=== PATIENT | male | born 1950 | race Caucasian/White ===

== ENCOUNTER 2019-03-21 16:46 | Inpatient (IN) | payer BC, OTHER ==
[~2019-03-21] VITALS: Ht 182.9 cm; Wt 54.0 kg
[2019-03-21] VITALS (12 sets, daily range): BP systolic 96–133; BP diastolic 55–94
--- NOTE | ~2019-03-21 | H ---
[facility] [place] [address] HISTORY AND PHYSICAL Name: JAKI LEON Room #: 207-P ADM IN M.R.#: [id number] Admission: 03/21/19 ������������������ Attend Phys: Yves Chen MD, Discharge: ������������������ Date of : 46 Report #: [id number] THIS REPORT FOR: //name// CC: SOBEIDA physician/PCP Yves Chen DATE OF SERVICE: 03/21/2019 HISTORY OF PRESENT ILLNESS: The patient is a 68-year-old male, who had onset of chest pain, shortness of breath that occurred at home approximately 45 minutes before they summoned [facility], comes in with some ST elevation in inferior lateral leads, which has worsened since he has been here. He is having significant discomfort. He has received aspirin, heparin, and Lipitor. He has taken nitroglycerin x2 with some partial relief. His only medication is quinapril. He states he does not believe in Western medicine, but somebody fills his quinapril. He has a history of a stroke 10 years ago or so he states, hypertensive stroke possibly with no residual and really does not offer much other history. He denies any other surgeries, but he has become progressively short of breath and weak for the last 2-3 weeks or longer. He has a 30 pound weight loss a year and a year and a half ago. They think predominantly due to asthma and COPD. He states he smoked since he left the womb until 10 years ago. 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 MEDICATIONS: His medications are quinapril and some inhaler. PAST MEDICAL HISTORY: Positive for some COPD, tobacco abuse, alcohol abuse, none of which he currently partakes in, some questionable asthma, appears to have chronic kidney disease. SOCIAL HISTORY: He is retired. He has 1 child, 1 daughter, who is accompanying and . LABORATORY DATA: His creatinine is 2.5. Troponin is 0.1. H and H is 13 and 39. ALLERGIES: No known drug allergies. PHYSICAL EXAMINATION: VITAL SIGNS: Pulse is 80, blood pressure 110/70. HEENT: There looks to be corneal arcus. Eyes reveal xanthelasmas. Pharynx is clear, slightly dry mucous membranes. NECK: Shows preserved upstrokes. LUNGS: Prolonged expiratory phase. CARDIOVASCULAR: S1, S2 distant. ABDOMEN: Slender, nontender. EXTREMITIES: Reveal no edema. Distal pulses diminished. [facility] [address] [place] [address] HISTORY AND PHYSICAL Name: JAKI LEON Room #: 207-P [facility] IN ..#: [id number] Admission: 03/21/19 ������������������ Attend Phys: Yves Chen MD, Discharge: ������������������ Date of : 48 Report #: [id number] NEUROLOGIC: Nonfocal. SKIN: Warm and dry without xanthoma or ulcer. MUSCULOSKELETAL: Generalized arthritic changes. ASSESSMENT: 1. Acute inferolateral myocardial infarction, ST elevation. 2. Chronic obstructive pulmonary disease. 3. Hypertension. 4. Apparent chronic kidney disease with creatinine currently 2.5. 5. History of possibly a stroke 10 years ago due to hypertension without current residual. RECOMMENDATIONS AND PLAN: We will proceed emergently to the catheterization lab. I discussed this with him, although he was concerned that he was not going to partake in Western medicine, he will agree to this procedure. Heparin, aspirin, nitro, and 80 of Lipitor has been given. We will initiate IV fluids here. Try to hydrate and limit our contrast as best we can, but in the throes of an inferolateral infarct, we will need to try to abort this. This has been discussed with the patient, his daughter, and . ��������������������������������������������� ���������������������������������������� By: ��������������������������������������������� 1737 52 Yves Chen MD, FACC /nt
--- NOTE | ~2019-03-21 | D ---
[facility] [place] [address] [place] [address] DISCHARGE SUMMARY Name: JAKI LEON Room #: 207-P DIS IN M.R.#: [id number] Admission: 03/21/19 ������������������ Attend Phys: Yves Chen MD, Discharge: 03/24/19 ������������������ Date of : 48 Report #: [id number] THIS REPORT FOR: //name// CC: SOBEIDA physician/PCP Yves Chen DATE OF SERVICE: 03/24/2019 HOSPITAL COURSE: A 68-year-old male who comes in with a stuttering anterior wall myocardial infarction. He does not see physicians. He does not really have primary care. He does get quinapril 5 mg from somebody when he was here. He had a ST-segment elevated NM with lateral leads, predominantly. To the labor employment associate emergently, 99% subtotal the LAD with some slow flow and a distal clot. The RCA has 70-75%, possibly for a later date. The circ was mildly diseased. This was a large wraparound LAD and the bifurcation after the apex was occluded along the inferior apical wall. This did open up partially. I was able to successfully dilate and stent the proximal segment with a 3.0 x 18 Resolute [place] stent, postdilated to 3.1 mm, HARRIET grade 3 flow. Then the entire flow was restored except for the very distal end of the inferior apical bifurcation of the distal LAD, which would be the inferior apical wall. There was an extensive anterior apical, inferior apical defect. EF 30-35% was consistent with what the echo findings were the following day. I suspect this may have been going on and off for a couple of weeks. I am hoping that we will recruit further myocardium. He will be discharged on dual antiplatelet therapy, aspirin and Plavix, quinapril 5, Toprol 25, atorvastatin 40. He has followup in 2 weeks in our office. I will see him in 3 months with an echo Doppler. Then, we will continue to watch carefully the RCA lesion which is in the 70% range. We will look first abnormal testing or symptoms. He has had no recurrent chest pain or pressure. He has been at times difficult post-procedure and stent. He does not believe in Western medicine, but will agree to do this. I explained that he did get a Western balloon and stent. I discussed with daughter and in detail. GI was evaluated and wanted to do a colonoscopy and EGD, but then he refused. May further evaluate this and GI was recommending the addition of Protonix 40 every day. No lifting for 48 hours. No lying in tub, Jacuzzi or pinto for a week. No MRI or dental work for 3 months. DISCHARGE DIAGNOSES: 1. Acute anterior lateral wall myocardial infarction. 2. Moderate ischemic cardiomyopathy. [address] [address] DISCHARGE SUMMARY Name: JAKI LEON Room #: 207-P DIS IN M.R.#: [id number] Admission: 03/21/19 ������������������ Attend Phys: Yves Chen MD, Discharge: 03/24/19 ������������������ Date of : 48 Report #: [id number] 3. Hypercholesterolemia. 4. Reflux. ��������������������������������������������� ���������������������������������������� By: ��������������������������������������������� 1317 1623 Yves Chen MD, FACC /nt
[2019-03-21 17:13] LABS: ABSOLUTE NEUTROPHILS 4.7 thou/uL (1.4-8.2); BASOPHILS 3.1 % (0.0-2.0); EOSINOPHILS 5.1 % (0.0-3.0); HEMATOCRIT 39.8 % (42.0-52.0); HEMOGLOBIN 13.1 gm/dL (14.0-18.0); LYMPHOCYTES 27.9 % (24.0-44.0); MCV 93.9 fL (80.0-100.0); MONOCYTES 7.3 % (1.0-8.0); PLATELET COUNT 229 thou/uL (150-400); POLYS 56.6 % (36.0-66.0); RBC 4.24 mil/uL (4.50-6.00); RDW 14.4 % (10.5-14.5); WBC 8.4 thou/uL (4.0-11.0)
[2019-03-21 17:20] LABS: CREATININE 2.5 mg/dL (0.7-1.3); POTASSIUM 4.2 mmol/L (3.5-5.1)
[2019-03-21 17:29] LABS: TROPONIN-I 0.1 ng/mL (<0.06)
[2019-03-22] VITALS: BP 165/67
[2019-03-22 04:00] VITALS: BP 110/69
[2019-03-22 04:13] LABS: CALCIUM 11.3 mg/dL (8.5-10.1); CREATININE 2.2 mg/dL (0.7-1.3); POTASSIUM 4.5 mmol/L (3.5-5.1)
[2019-03-22 04:19] LABS: HEMATOCRIT 35.9 % (42.0-52.0); MCH 31.1 pg (26.0-34.0); MCHC 33.6 g/dL (28.0-37.0); MCV 92.6 fL (80.0-100.0); RBC 3.87 mil/uL (4.50-6.00); RDW 14.3 % (10.5-14.5); WBC 7.8 thou/uL (4.0-11.0)
[2019-03-22 04:22] LABS: TROPONIN-I 40.56 ng/mL (<0.06)
--- NOTE | 2019-03-22 05:57 | NUR ---
ADMIT NOTE:RECEIVED REPORT FROM HARPER PERSON THE SAME TIME HE BROUGHT THE PATIENT TO THE UNIT.PT A/ O X 4.COMPLAIN OF HEADACHE,NECK PAIN AND BILATERAL SHOULDER PAIN WHICH IS CHRONIC AND REFUSED PAIN MEDICATION.PT IS IRRITABLE AND UNCOOPERATIVE INITIALLY.WANTS TO SIT UP AND TRIES TO BEND HIS RIGHT LEG.EXPLAINED TO HIM ABOUT THE RISK OF BLEEDING AND HE NEEDS TO BE BEDREST UNTIL 2200.PT UNDERSTOOD AND USES THE URINAL.VOIDED MORE THAN ADEQUATE AMOUNT.RIGHT GROIN SITE C/D/I.NO SIGNS OF BLEEDING OR HEMATOMA NOTED.ON INTEGRILLIN GTT AND DISCONTINUED AFTER [address] CANO.INTEGRILLIN WAS STARTED IN THE LAY OUT FORMER AND WAS ALREADY INFUSING WHEN PT REACH ROOM 207.PT IS ALSO ON NS AT 100 ML/HR AND DISCONTINUED AT 6 AM ORDERED.DENIES CHEST PAIN.COMPLAIN OF NAUSEA AFTER EATING AND DRINKING. FAMILY WAS HERE.WILL MONITOR AND CONTINUE POC. ORDERED.
[2019-03-22] MEDS ORDERED: ACCUPRIL5 MG PO (07:21)
[2019-03-22 08:10] VITALS: BP 110/69
--- NOTE | 2019-03-22 08:15 | EKG ---
[address] [place] [employer] [place] [address] ELECTROCARDIOGRAM REPORT Name: CAROLYNJAKIHUMBERTO FARFAN Room #: 207-P ADM IN M.R.#: [id number] ������������������ Admission: 03/21/19 ������������������ Attend Phys: Yves Chen MD, Discharge: ������������������ Date of : 46 Report #: [id number] ����������������������������������������������������������������� [id number] THIS REPORT FOR: //name// 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1950 Requested By: Jaxson Gerardo Order Number: [id number] MD: Alexander Ware Measurements Intervals [place] Rate: 87 P: 91 HI: 168 QRS: 72 QRSD: 106 T: 85 QT: 355 QTc: 427 Interpretive Statements Sinus rhythm Inferior infarct, acute (RCA) ST elevation, consider anterior injury No previous ECG available for comparison Electronically Signed On 03-22-2019 8:15:14 CDT by Alexander Ware [email or web address] ��������������������������������������������� <ELECTRONICALLY SIGNED> ���������������������������������������� By: Alexander Ware MD, [facility] ��������������������������������������������� 03/22/19 0815 1648 47 Alexander Ware MD, [facility] /EPI
--- NOTE | 2019-03-22 08:16 | EKG ---
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1950 Requested By: Jaxson Gerardo Order Number: [id number] MD: Alexander Ware Measurements Intervals [place] Rate: 79 P: -27 MI: 141 QRS: 51 QRSD: 103 T: 77 QT: 371 QTc: 426 Interpretive Statements Sinus rhythm Anterolateral infarct, acute (LAD) ST elevation, consider inferior injury No previous ECG available for comparison Electronically Signed On 03-22-2019 8:15:57 CDT by Alexander Ware [email or web address] ��������������������������������������������� <ELECTRONICALLY SIGNED> ���������������������������������������� By: Alexander Ware MD, [facility] ��������������������������������������������� 03/22/19 0815 172 20 Alexander Ware MD, [facility] /EPI
[2019-03-22 08:22] VITALS: BP 116/83
--- NOTE | 2019-03-22 08:24 | EKG ---
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1950 Requested By: Yves Chen Order Number: [id number] MD: Alexander Ware Measurements Intervals [place] Rate: 72 P: 82 CT: 163 QRS: -61 QRSD: 91 T: 81 QT: 372 QTc: 408 Interpretive Statements Sinus rhythm Left axis deviation RSR' in V1 or V2, probably normal variant No previous ECG available for comparison Electronically Signed On 03-22-2019 8:24:37 CDT by Alexander Ware [email or web address] ��������������������������������������������� <ELECTRONICALLY SIGNED> ���������������������������������������� By: Alexander Ware MD, [facility] ��������������������������������������������� 03/22/19823 3 3 Alexander Ware MD, [facility] /EPI
[2019-03-22 08:37] LABS: CHOLESTEROL 179 mg/dL (<200); HDL CHOLESTEROL 53 mg/dL (>40); LDL CHOLESTEROL 109 mg/dL (<100); TC:HDL 3.4 Ratio (Not establshd); TRIGLYCERIDE 88 mg/dL (<150); VLDL 18 mg/dL (<40)
--- NOTE | 2019-03-22 13:32 | 2DMMODE ---
[facility] [address] [place] [address] 2 D/M-MODE ECHOCARDIOGRAM Name: CAROLYNJAKI PRITCHETTN Room #: 207-P [facility] IN M.R.#: [id number] ������������� Admission: 03/21/19 ������������� Attend Phys: Yves Chen, Discharge: ��� ������������� ��� Date of : 46 Date of Service: 03/22/19 1332 �� Report #: [id number] �������� ��������������������������������������������[id number] THIS REPORT FOR: //name// APPROVED REPORT Study performed: 03/22/2019 11:22:58 EXAM: Comprehensive 2D, Doppler, and color-flow Echocardiogram Patient Location: Bedside Room #: [facility] Status: routine BSA: 1.71 HR: 68 bpm BP: 116/83 mmHg Rhythm: NSR Other Information Study Quality: Adequate Technically limited study due to lung disease, uncooperative patient. Indications COPD CAD Hypertension/HDD STEMI, post PCI Echo Enhancing Agent Indication: Endocardial border delineation Agent(s) / Amount(s) Used: Optison 3 cc 2D Dimensions RVDd: 29.86 mm IVSd: 7.85 (7-11mm) LVOT Diam: 22.62 (18-24mm) LVDd: 42.31 mm PWd: 9.27 (7-11mm) LVDs: 36.16 (25-40mm) Aortic Root: 30.97 mm IVC: 22.00 mm Volumes Left Atrial Volume (Systole) Single Plane 4CH: 42.02 mL Single Plane 2CH: 28.55 mL LA ESV Index: 23.00 mL/m2 Aortic Valve [facility] [address] [place] [address] 2 D/M-MODE ECHOCARDIOGRAM Name: JAKI LEON Room #: 207-P [facility] IN M.R.#: [id number] ������������� Admission: 03/21/19 ������������� Attend Phys: Yves Chen, Discharge: ��� ������������� ��� Date of : 46 Date of Service: 03/22/19 1332 �� Report #: [id number] �������� ��������������������������������������������[id number] AoV Peak Richard.: 0.90 m/s AO Peak Gr.: 3.25 mmHg LVOT Max P.28 mmHg LVOT Max V: 0.75 m/s GILBERT Vmax: 3.36 cm2 AI Vmax: 4.49 m/s AI [place]: 1.89 m/s2 AI PHT: 688.74 ms Mitral Valve E/A Ratio: 1.0 MV Decel. Time: 124.45 ms MV E Max Richard.: 0.48 m/s MV A Richard.: 0.50 m/s MV PHT: 36.09 ms IVRT: 138.41 ms Pulmonary Vein P Vein S: 0.32 m/s P Vein A: 0.22 m/s P Vein D: 0.39 m/s P Vein A Dur.: 138.4 msec P Vein S/D Ratio: 0.82 Tricuspid Valve TR Peak Richard.: 2.18 m/s RAP Estimate: 10.00 mmHg TR Peak Gr.: 19.03 mmHg PA Pressure: 29.00 mmHg Left Ventricle The left ventricle is normal size. Regional wall motion abnormalities are noted. There is normal left ventricular wall thickness. Left ventricular ejection fraction is moderate to severely decreased.severe ant apical distal septum hypo LVEF is 30 35% Right Ventricle The right ventricle is normal size. The right ventricular systolic function is normal. Atria The left atrium size is normal. The right atrium size is normal. Aortic Valve Mild aortic valve sclerosis. Mild aortic regurgitation. There is no aortic valvular stenosis. Mitral Valve The mitral valve is normal in structure. There [place] [address] 2 D/M-MODE ECHOCARDIOGRAM Name: JAKI LEON ADOLPH Room #: [facility] IN ..#: [id number] ������������� Admission: 03/21/19 ������������� Attend Phys: Yves Chen, Discharge: ��� ������������� ��� Date of : 46 Date of Service: 03/22/19 1332 �� Report #: [id number] �������� ��������������������������������������������[id number] regurgitation noted. No evidence of mitral valve stenosis. Tricuspid Valve The tricuspid valve is normal in structure. Trace tricuspid regurgitation. PAP is estimated at 29 mmHg. Pulmonic Valve Pulmonic valve is not well visualized. Great Vessels The aortic root is normal in size. Ascending aorta is not well visualized. IVC is mildly dilated and collapses >50% with inspiration. Pericardium Trace anterior pericardial effusion. <Conclusion> The left ventricle is normal size. Left ventricular ejection fraction is moderate to severely decreased.severe ant apical distal septum hypo LVEF is 30 35% The right ventricle is normal size. The left atrium size is normal. Mild aortic regurgitation. There is no mitral valve regurgitation noted. Trace tricuspid regurgitation. PAP is estimated at 29 mmHg. The aortic root is normal in size. Trace anterior pericardial effusion. ��������������������������������������������� <ELECTRONICALLY SIGNED> ���������������������������������������� By: Yves Chen MD, FACC ��������������������������������������������� 03/22/19 133 31 31 Yves Chen MD, FACC /INF
--- NOTE | 2019-03-22 16:08 | NUR ---
VSS REMAINS NSR. UP IN ROOM WITH NO C/O CHEST PAIN TODAY. R GROIN CATH SITE WITH SM BRUISING, NO HEMATOMA. PT C/O TODAY OF NAUSEA AND VOMITING AT TIMES OF UNDIGESTED FOOD, AWARE AND ZOFRAN ORDERED, WITH MODERATE RELIEF OF NAUSEA, APPETITE POOR. WILL CONTINUE TO MONITER AND CARE FOR PT PER PLAN OF CARE
--- NOTE | 2019-03-22 17:07 | CATHLAB ---
[facility] [address] [place] [address] INVASIVE PROCEDURE REPORT Name: JAKI LEON Room #: 207-P ADM IN M.R.#: [id number] ������������� Admission: 03/21/19 ������������� Attend Phys: Yves Chen, Discharge: ��� ������������� ��� Date of : 46 Date of Service: 03/22/19 1707 �� Report #: [id number] �������� ��������������������������������������������[id number] THIS REPORT FOR: //name// APPROVED REPORT Study performed: 03/21/2019 17:24:41 Patient Details Patient Status: In-Patient Room #: The patient is a 68 year-old male Event Personnel Yves Chen Patient Care Specialist, Kareem Tom RN RN, Monique Siddiqui Monitor, Carmella Barnett RTR, PROPELLANT ASSEMBLER Scrub Procedures Performed Art Access - R femoral artery* 16713 Initial Mod Sed Same Phys/QHP Gr5y 110175 89286 Mod Sed Same Phys/QHP Ea 813893 Left Heart Cath w/or w/o Coronaries 6229486 [facility] Aortogram Abdominal Peripheral Angio 227460 SHERIDAN Revasc AMI Total/Sub Single LAD C9606 AMIREVSING Hemostasis w/ Mynx Indication STEMI Procedure Narrative The patient was brought emergently to the Cardiac Catheterization Laboratory and was prepped and draped in a sterile manner. The was infiltrated with 1% Lidocaine subcutaneous anesthesia. A PINNACLE 6FR Sheath #[id number] sheath was inserted into the RFA^. Coronary angiography was performed using coronary diagnostic catheters. The right coronary system was accessed and visualized with a JR 4 catheter. The left coronary system was accessed and visualized with a JL 4 catheter. The left ventricle was accessed and visualized with a Pigtail catheter. Left ventriculogram was performed in SEGAL projection. An aortogram of the abdominal aorta was performed. Closure device was deployed with a 6 Fr Mynx. The patient tolerated the procedure well and there were no complications associated with the procedure. There was no hematoma. Intraoperative Conscious Sedation Sedation start time: 17:32 Case end Time: 18:19 Fentanyl 100 mcg Versed [address] [address] INVASIVE PROCEDURE REPORT Name: JAKI LEON Room #: 207-P [facility] IN ..#: [id number] ������������� Admission: 03/21/19 ������������� Attend Phys: Yves Chen, Discharge: ��� ������������� ��� Date of : 46 Date of Service: 03/22/19 1707 �� Report #: [id number] �������� ��������������������������������������������[id number] Fluoro Time: 4.47 minutes Dose: DAP 2581.00 cGycm2 327 mGy Contrast Type and Amount: Visipaque 125 ml Hemodynamics The aortic pressure is 102/69 mmHg with a mean of 83 mmHg. The left ventricular pressure is 111/17 mmHg with a mean of mmHg. The left ventricular end diastolic pressure is 41 mmHg. PCI Technique Lesion Percutaneous coronary intervention was performed on the proximal left anterior descending artery segment. A LAUNCHER 6FR EBU 3.5 #[id number] Guide Catheter was used to engage the ostium. BALLOON DILATION A Balloon catheter Sprinter OTW 2.5 x 15 #[id number] was inserted and inflated up to 12.00atm for 16seconds. STENT DEPLOYMENT A drug-eluting stent RESOLUTE LETICIA OTW 3.0 X 18 #[id number] was inserted and inflated up to 14.00atm for 28seconds. Conclusion #1 successful PTCA stent of the proximal small LAD high-grade subtotal lesion Clarisse with 30 by 18 [place] drug-eluting stent to 0% residual HARRIET grade 3 flow. Distal thrombus occludes the inferior apical segment of this LAD which extends to a small portion of inferior apical wall. 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 #4 dominant right with an eccentric 70-75% proximal mid vessel lesion filling a preserved NO and PDA which is a small system. This inferior apical branch off of the LAD predominantly was filling a portion of this inferior apex. #5 normal left jugular size with an extensive area of anterior apical inferior apical severe hypokinesis EF 30-35% range. #6 abdominal aortogram was performed due to significant tortuosity of the right iliac system. No occlusive disease no aneurysm. Flush injections reveal but may be a high-grade left renal artery stenosis. Impression: Successful emergent PTCA stent of the acute infarct vessel. The very small distal inferior apical segment of the LAD has clot formation. The remainder of the vessel is brisk flow restored. [facility] [address] [place] [address] INVASIVE PROCEDURE REPORT Name: JAKI LEON Room #: 207-P ADM IN M.R.#: [id number] ������������� Admission: 03/21/19 ������������� Attend Phys: Yves Chen, Discharge: ��� ������������� ��� Date of : 46 Date of Service: 03/22/191706 �� Report #: [id number] �������� ��������������������������������������������[id number] Transfer to [facility] in stable but guarded condition. Will closely follow RCA lesion and left renal artery stenosis. ��������������������������������������������� <ELECTRONICALLY SIGNED> ���������������������������������������� By: Yves Chen MD, FACC ��������������������������������������������� 03/22/191706 06 06 Yves Chen MD, FACC /INF
[2019-03-22 17:18] VITALS: BP 91/63
[2019-03-22 20:07] VITALS: BP 104/76
[2019-03-23 00:42] VITALS: BP 100/47
--- NOTE | 2019-03-23 02:36 | NUR ---
A/O X 4.DENIES PAIN AND SOB.COMPLAIN OF NAUSEA BUT REFUSES MEDICATION.INFORMED PATIENT AND FAMILY THAT ZOFRAN IS AVAILABLE IF NEEDED.RIGHT GROIN C/D/I;BRUISING NOTED BUT NO HEMATOMA.MONITOR SHOWS SINUS RHYTHM.NO RUNS OF VTACH NOTED.WILL MONITOR AND CONTINUE POC.
[2019-03-23] MEDS ORDERED: ADVAIR 250-501 EACH INH (03:27)
[2019-03-23 04:20] VITALS: BP 106/76
[2019-03-23 05:43] LABS: CALCIUM 11.6 mg/dL (8.5-10.1); CREATININE 2.2 mg/dL (0.7-1.3); POTASSIUM 4.7 mmol/L (3.5-5.1)
[2019-03-23 07:45] VITALS: BP 132/72
[2019-03-23] MEDS ORDERED: LIPITOR40 MG PO (08:37)
[2019-03-23] MEDS ORDERED: TOPROL XL25 MG PO (08:37)
[2019-03-23] MEDS ORDERED: ASPIRIN325 PO (08:37)
[2019-03-23] MEDS ORDERED: CLOPIDOGREL75 MG PO (08:37)
--- NOTE | 2019-03-23 09:49 | EKG ---
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1950 Requested By: Yves Chen Order Number: [id number] MD: Alexander Ware Measurements Intervals [place] Rate: 75 P: 33 AR: 148 QRS: -77 QRSD: 96 T: 89 QT: 368 QTc: 411 Interpretive Statements Sinus rhythm Left anterior fascicular block Low voltage, precordial leads Nonspecific T abnrm, anterolateral leads Compared to ECG 03/22/2019 07:14:43 Left anterior fascicular block now present Anterior T-wave abnormality is more pronounced Electronically Signed On 03-23-2019 9:49:08 CDT by Alexander Ware [email or web address] ��������������������������������������������� <ELECTRONICALLY SIGNED> ���������������������������������������� By: Alexander Ware MD, [facility] ��������������������������������������������� 03/23/19 0949 5 5 Alexander Ware MD, FAC /EPI
[2019-03-23 12:30] VITALS: BP 126/90
[2019-03-23 16:17] VITALS: BP 99/66
--- NOTE | 2019-03-23 18:22 | NUR ---
PT CARE ASSUMED APPROX 0700. PT ALERT AND ORIENTED X4. REPORTS CHRONIC PAIN IN BACK, NECK AND LEFT SHOULDER BUT REFUSES PAIN MEDS. REPORTS NAUSEA AND WAS MEDICATED ONCE FOR IT THIS AM. REFUSED MED AFTER. PT TOOK AM MEDS WITH DR CANO'S ENCOURAGEMENT. REFUSED NEW ORDER FOR LISINOPRIL D/T RELATIVE HOME MED. 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 LISINOPRIL STOPPED AND NEW HOME MED STARTERD ONCE PT BROUGHT IN. AFTER HOME MED ENTERED INTO Host Committee EMAR PT'S BP BELOW INDICATION TO GIVE BP MEDS. PT ASYMPTOMATIC. AGREEABLE TO HOLDING MED. VS OTHERWISE STABLE. EGD CONSENT OBTAINED AND SCHEDUELED FOR AM. PT AMBULATING IN HALLWAYS WITH FAMILY INTERMITTENTLY THIS SHIFT. STEADY GAIT. COMPLIANT WITH FLUID RESTRICTION AND DIET. NO DISTRESS NOTED.
[2019-03-23 20:24] VITALS: BP 125/96
--- NOTE | 2019-03-24 03:05 | NUR ---
ASSUMED PT'S CARE AT 1920; PT. ON BED; AOX4; DURING ASSESSMENT PT. ON BED; RELATIVE AT THE BED SIDE; NO HS MEDICATION; EDUCATED ABOUT THE REASON OF KEEPING OPEN DOORS; EDUCATED ABOUT ROUNDING THROUGH THE NIGHT; NOTIFIED LIGHTS WILL NO TURN ON WHEN ROUNDING; ST. HAVING PAIN WHEN ASKED IF HAS ANY PAIN; REFUSED PAIN MEDICATION; AROUND 2200 PT. REQUESTED PRN ANTI-NAUSEA MEDICATION; MEDICATION GIVEN; DURING RE-ASSESSMENT PT. RESTLESS; C/O NAUSEA; ST. MEDICATION HELPED JUST FOR SOME TIME; REFUSED MORE MEDICATION; REQUESTED BATHROOM LIGHT OFF; REMINDED OF NPO AFTER MIDNIGHT; ST. UNDERSTANDING; ABLE TO REST WITH EYES CLOSED AFTER MIDNIGHT; MONITORING; ASSESSMENT CHARGED; FOLLOWING POC; WILL PASS ON REPORT.
[2019-03-24 05:22] VITALS: BP 125/86
[2019-03-24 08:15] VITALS: BP 114/87
[2019-03-24 11:45] VITALS: BP 87/63
[2019-03-24 12:32] LABS: HEMATOCRIT 37.8 % (42.0-52.0)
[2019-03-24] MEDS ORDERED: PROTONIX40 M1 PO (13:18)
[2019-03-24 13:21] VITALS: BP 114/87
--- NOTE | 2019-03-24 13:38 | NUR ---
ASSUMED PATIENT CARE AT 0700. A/O X4. DENIES CHEST PAIN. 500ML NS GIVEN FOR LOW BP. PATIENT REFUSED EGD. DC TO HOME NOW.
== END 2019-03-24 14:45 | disposition home or self-care (01) | DRG 247 ==
LOC: ER 16:46 → EROBS 17:05 → 2N 17:05 → ENTRNSPT 03-24 14:31 → 2N 03-24 14:45
PROVIDERS: Emergency Medicine; Internal Medicine Gastroenterology; Nurse Practitioner Adult Health; ADMIT Internal Medicine Cardiovascular Disease
PROC: 4A023N7 Measurement of Cardiac Sampling and Pressure, Left Heart, Percutaneous Approach (ICD-10-PCS; principal; 2019-03-21)
PROC: B410YZZ Fluoroscopy of Abdominal Aorta using Other Contrast (ICD-10-PCS; principal; 2019-03-21)
PROC: B215YZZ Fluoroscopy of Left Heart using Other Contrast (ICD-10-PCS; principal; 2019-03-21)
PROC: B211YZZ Fluoroscopy of Multiple Coronary Arteries using Other Contrast (ICD-10-PCS; principal; 2019-03-21)
PROC: 027034Z Dilation of Coronary Artery, One Artery with Drug-eluting Intraluminal Device, Percutaneous Approach (ICD-10-PCS; principal; 2019-03-21)
DX: I21.09 ST elevation (STEMI) myocardial infarction involving other coronary artery of anterior wall (principal); N17.9 Acute kidney failure, unspecified; Z68.1 Body mass index [BMI] 19.9 or less, adult; I25.5 Ischemic cardiomyopathy; E78.00 Pure hypercholesterolemia, unspecified; K21.9 Gastro-esophageal reflux disease without esophagitis; J44.9 Chronic obstructive pulmonary disease, unspecified; I12.9 Hypertensive chronic kidney disease with stage 1 through stage 4 chronic kidney disease, or unspecified chronic kidney disease; N18.9 Chronic kidney disease, unspecified; E78.5 Hyperlipidemia, unspecified; F17.210 Nicotine dependence, cigarettes, uncomplicated; R63.4 Abnormal weight loss; Z86.73 Personal history of transient ischemic attack (TIA), and cerebral infarction without residual deficits; Z71.6 Tobacco abuse counseling; Z79.899 Other long term (current) drug therapy
CPT/HCPCS: 10081

== ENCOUNTER → 2020-08-24 | Outpatient (CLI) | payer OTHER ==
[~2020-08-24] MED LIST: ACCUPRIL5 MG PO; ADVAIR 250-501 EACH INH; ASPIRIN325 PO; CLOPIDOGREL75 MG PO; LIPITOR40 MG PO; PROTONIX40 M1 PO; TOPROL XL25 MG PO
== END ==
LOC: SJCVC 15:00
PROVIDERS: ATTEND Internal Medicine Cardiovascular Disease
DX: I25.10 Atherosclerotic heart disease of native coronary artery without angina pectoris (principal); I25.5 Ischemic cardiomyopathy; E78.00 Pure hypercholesterolemia, unspecified; I10 Essential (primary) hypertension; E78.5 Hyperlipidemia, unspecified; R07.9 Chest pain, unspecified; R06.02 Shortness of breath; F12.90 Cannabis use, unspecified, uncomplicated; Z86.73 Personal history of transient ischemic attack (TIA), and cerebral infarction without residual deficits; Z79.899 Other long term (current) drug therapy; Z79.82 Long term (current) use of aspirin

== ENCOUNTER 2020-09-06 06:38 | Observation (INO) | payer OTHER ==
[~2020-09-06] VITALS: Ht 182.9 cm; Wt 59.0 kg
[2020-09-06 07:12] VITALS: BP 135/87
[2020-09-06 07:37] LABS: HEMATOCRIT 41.2 % (42.0-52.0); HEMOGLOBIN 13.5 gm/dL (14.0-18.0); MCHC 32.7 g/dL (28.0-37.0); MCV 94.9 fL (80.0-100.0); RBC 4.35 mil/uL (4.50-6.00); RDW 14.1 % (10.5-14.5); WBC 5.2 thou/uL (4.0-11.0)
--- NOTE | 2020-09-06 07:41 | EKG ---
[place] [address] [facility] [place] [address] ELECTROCARDIOGRAM REPORT Name: MARNIE LEON Room #: [facility]#: [id number] Admission: 09/06/20 Attend Phys: Yves Chen MD, Discharge: Date of : 46 Report #: [id number] [facility] Test Date: 2020-09-06 Test Time: 07:16:32 Pat Name: MARNIE LEON Department: Room: Gender: Guidance Services Coordinator: SBUL : 1950 Requested By: Yves Chen Order Number: [id number] MD: Alexander Ware Measurements Intervals [place] Rate: 60 P: 71 KS: 160 QRS: -82 QRSD: 100 T: 64 QT: 395 QTc: 395 Interpretive Statements Sinus rhythm Left axis deviation Poor R wave progression RSR' in V1 or V2, probably normal variant Compared to ECG 03/23/2019 07:16:10 Anterior T wave abnormality is less pronounced Left anterior fascicular block no longer present Electronically Signed On 09-06-2020 7:40:52 DISPLAYER MERCHANDISE by Alexander Ware [email or web address] <ELECTRONICALLY SIGNED> By: Alexander Ware MD, [facility] 09/06/20 0740 5 5 Alexander Ware MD, [facility] /EPI
[2020-09-06 07:48] LABS: CALCIUM 11.8 mg/dL (8.5-10.1); CREATININE 2.2 mg/dL (0.7-1.3); POTASSIUM 4.1 mmol/L (3.5-5.1)
[2020-09-06 17:26] VITALS: BP 146/99
--- NOTE | 2020-09-06 19:07 | NUR ---
PT CAME FROM THE PRINT OPERATOR VIA RN ESCORT, UPON ARRIVAL PT WAS ACCOMPANIED BY DAUGHTER AND BELONGINGS. PT WAS ADAMANT ABOUT USING HIS HOME MEDIATION FOR TONIGHT. RN CONTACTED , GOT THE OK FOR MED, PHAMRAMCY VERIFIED, ONE TIME DOSE GIVEN TONIGHT. PT TO DISCHARGE TOMORROW MORNING. VS WERE STABLE UPON ARRIVAL. R GROIN SITE C/D/I HEMOSTASIS ACHIEVED AT 1620. RN SIGNING OFF
[2020-09-06 20:08] VITALS: BP 119/84
[2020-09-06 23:08] VITALS: BP 136/85
[2020-09-07 03:38] VITALS: BP 129/87
--- NOTE | 2020-09-07 04:39 | NUR ---
PT S/P CARDIAC STENT. ACCESSED THROUGH THE RIGHT GROIN SITE. C/D/I NO HEMATOMA. PT ALERT AND ORIENTED, VITALS STABLE, ANTICIPATES TO D/C THIS AM. NO OTHER CONCERNS. WILL CONTINUE TO MONITOR.
[2020-09-07 05:01] LABS: HEMATOCRIT 39.3 % (42.0-52.0); HEMOGLOBIN 13.1 gm/dL (14.0-18.0); MCH 31.6 pg (26.0-34.0); MCHC 33.3 g/dL (28.0-37.0); MCV 94.7 fL (80.0-100.0); RBC 4.15 mil/uL (4.50-6.00); RDW 13.9 % (10.5-14.5); WBC 6.1 thou/uL (4.0-11.0)
[2020-09-07 05:17] LABS: ALBUMIN 3.6 g/dL (3.4-5.0); ANION GAP 8 mmol/L (7-16); BUN 37 mg/dL (7-18); CALCIUM 11.1 mg/dL (8.5-10.1); CHLORIDE 110 mmol/L (98-107); CO2 22 mmol/L (21-32); GLUCOSE 98 mg/dL (74-106); POTASSIUM 4.3 mmol/L (3.5-5.1); SGOT 18 U/L (15-37); SGPT 25 U/L (16-63); SODIUM 140 mmol/L (136-145); TOTAL BILIRUBIN 0.7 mg/dL (0.2-1.0); TOTAL PROTEIN 6.7 g/dL (6.4-8.2); TROPONIN-I <0.06 ng/mL (<0.06)
--- NOTE | 2020-09-07 07:29 | EKG ---
[address] [place] [place] [address] ELECTROCARDIOGRAM REPORT Name: LEONMARNIE G Room #: 207-[facility] M.R.#: [id number] Admission: 09/06/20 Attend Phys: Yves Chen MD, Discharge: Date of : 46 Report #: [id number] [facility] Test Date: 2020-09-07 Test Time: 07:24:11 Pat Name: MARNIE LEON Department: Room: 207 P Gender: M Branch Credit Counselor: ARIN : 1950 Requested By: Emily Quijano Order Number: [id number] MD: Dariusz Hubbard Measurements Intervals [place] Rate: 69 P: 42 [place]: 161 QRS: 44 QRSD: 91 T: 63 QT: 371 QTc: 398 Interpretive Statements Sinus rhythm RSR' in V1 or V2, right VCD or RVH Compared to ECG 09/06/2020 07:16:32 Right ventricular hypertrophy now present Left-axis deviation no longer present Poor R-wave progression no longer present Electronically Signed On 09-07-2020 7:29:13 BUSINESS PRACTICES OFFICER by Dariusz Hubbard [email or web address] <ELECTRONICALLY SIGNED> By: Dariusz Hubbard MD, FAC 09/07/20728 3 3 Dariusz Hubbard MD, [facility] /EPI
[2020-09-07 07:31] VITALS: BP 167/107
[2020-09-07] MEDS ORDERED: EFFIENT10 MG PO (07:33)
[2020-09-07] MEDS ORDERED: ASPIR 8181 MG PO (07:33)
[2020-09-07] MEDS ORDERED: CRESTOR10 MG PO (07:46)
[2020-09-07 09:05] VITALS: BP 167/107
--- NOTE | 2020-09-07 17:46 | CATHLAB ---
[facility] [address] [place] [address] INVASIVE PROCEDURE REPORT Name: MARNIE LEON Room #: 207-P [facility] Mariama Munoz#: [id number] Admission: 09/06/20 Attend Phys: Yves Chen MD, Discharge: 09/07/20 Date of : 46 Report #: [id number] REPORT FOR: cc: FAM - No family physician/PCP FAM - No family physician/PCP Yves Chen MD [facility] ~ APPROVED REPORT Study performed: 09/06/2020 11:50:48 Patient Details Patient Status: Out-Patient Room #: The patient is a 69 year-old male Event Personnel Yves Chen Pc Support Specialist, Carmella Barnett RTR, GERIATRIC PHYSICIAN Monitor, Wallace Kemp RN RN, Alexa Jaime Scrub Procedures Performed Art Access - R femoral artery* Zaid Access - R femoral vein Right and Left Heart Cath w/or w/o Coronarie [id number] [facility] Place w/wo Plasty Single RCA 683497 Hemostasis with Manual pressure Hemostasis w/ Mynx 21935 Initial Mod Sed Same Phys/QHP Gr5y 070165 18182 Mod Sed Same Phys/QHP Ea 181089 Indication Chest pain Procedure Narrative The Right Groin^ was infiltrated with 1% Lidocaine subcutaneous anesthesia. A PINNACLE 6FR Sheath #[id number] sheath was inserted into the RFA. Coronary angiography was performed using coronary diagnostic catheters. The right coronary system was accessed and visualized with a LAUNCHER 6FR JR 4 #[id number] catheter. The left coronary system was accessed and visualized with a JL4 catheter. The left ventricle was accessed and visualized with a Pigtail catheter. Left ventricular/Aortic Valve gradient assessed via catheter pullback. Left ventriculogram was performed in 30 degree projection. Closure device was deployed with a 6 Fr MYNXGRIP 6/7F #[id number]. Hemostasis was obtained with manual pressure following sheath removal without any complications. The patient tolerated the procedure well and there were no complications associated with the procedure. There was no hematoma. [facility] [address] [place] [address] INVASIVE PROCEDURE REPORT Name: MARNIE LEON Room #: 207-P [facility]#: [id number] Admission: 09/06/20 Attend Phys: Yves Chen, Discharge: 09/07/20 Date of : 46 Report #: [id number] Intraoperative Conscious Sedation Sedation start time: 12:30 Case end Time: 13:26 Fentanyl 50 mcg Versed 2 mg Fluoro Time: 8.80 minutes Dose: DAP 2909.10 cGycm2 364 mGy Contrast Type and Amount: Visipaque 70 ml Hemodynamics The right atrial mean pressure is 6 mmHg. The right ventricular pressure is 30/4 mmHg. The pulmonary artery pressure is 29/8 mmHg with a mean of 16 mmHg. The mean pulmonary capillary wedge pressure is 9 mmHg. The aortic pressure is 122/67 mmHg with a mean of 60 mmHg. The left ventricular pressure is 112/5 mmHg with a mean of mmHg. The left ventricular end diastolic pressure is 21 mmHg. The cardiac output using thermo method is 3.90 L/min. The cardiac index using thermo method is 2.20 L/min/m2. PCI Technique Lesion Percutaneous coronary intervention was performed on the mid right coronary artery. A LAUNCHER 6FR JR 4 #[id number] Guide Catheter was used to engage the ostium. A Luge Wire .014 x 182CM #[id number] Interventional Guidewire was used to cross the lesion. STENT DEPLOYMENT A drug-eluting stent RESOLUTE LETICIA OTW 2.75 X 12 #[id number] was inserted and inflated up to 12.00atm for 34seconds. Additional Inflation: 14.00atm for 31seconds. Conclusion #1. Successful PTCA stent of the mid RCA 80 to 90% lesion placement of a 2.75 x 12 resolute Leticia drug-eluting stent HARRIET grade III flow 0% residual. #2 left main with mild tapered ostial narrowing widely patent giving rise to LAD and circumflex. #3 LAD with previously placed proximal stents widely patent proximal to the diagonal takeoff and then a 60% eccentric lesion in the LAD no progression this extends around the apex. #4 separate ostial circumflex artery with mild disease moderate in size but nondominant. #5 normal left jugular size and anterior inferior apical hypokinesis EF 45 to 50% range Recommendations and plan: Continue aggressive risk factor [address] [address] INVASIVE PROCEDURE REPORT Name: MARNIE LEON Room #: 207-P [facility] [place] M.R.#: [id number] Admission: 09/06/20 Attend Phys: Yves Chen, Discharge: 09/07/20 Date of : 46 Report #: [id number] modification continue and initiate dual antiplatelet therapy. Patient to CCU in stable condition. Follow post stent protocol. <ELECTRONICALLY SIGNED> By: Yves Chen MD, FACC 09/07/201744 44 44 Yves Chen MD, FACC /INF
== END 2020-09-07 09:50 | disposition home or self-care (01) ==
LOC: CATH 06:38 → 2N 17:20
PROVIDERS: Nurse Practitioner Adult Health; ADMIT Internal Medicine Cardiovascular Disease; ATTEND Internal Medicine Cardiovascular Disease
DX: I25.10 Atherosclerotic heart disease of native coronary artery without angina pectoris (principal); E78.5 Hyperlipidemia, unspecified; E78.00 Pure hypercholesterolemia, unspecified; I12.9 Hypertensive chronic kidney disease with stage 1 through stage 4 chronic kidney disease, or unspecified chronic kidney disease; N18.9 Chronic kidney disease, unspecified; N17.9 Acute kidney failure, unspecified

== ENCOUNTER → 2020-12-13 | Outpatient (CLI) | payer OTHER ==
[~2020-12-13] MED LIST changes: +ASPIR 8181 MG PO; +CRESTOR10 MG PO; +EFFIENT10 MG PO
== END ==
LOC: SJCVC 11:07
PROVIDERS: ATTEND Internal Medicine Cardiovascular Disease
DX: R94.31 Abnormal electrocardiogram [ECG] [EKG] (principal); I45.10 Unspecified right bundle-branch block; I11.9 Hypertensive heart disease without heart failure; I25.10 Atherosclerotic heart disease of native coronary artery without angina pectoris; I25.5 Ischemic cardiomyopathy; E78.00 Pure hypercholesterolemia, unspecified; J44.9 Chronic obstructive pulmonary disease, unspecified; Z95.5 Presence of coronary angioplasty implant and graft; Z79.899 Other long term (current) drug therapy; Z86.73 Personal history of transient ischemic attack (TIA), and cerebral infarction without residual deficits; Z87.891 Personal history of nicotine dependence; Z82.49 Family history of ischemic heart disease and other diseases of the circulatory system